=== PATIENT | female | born 1995 | race African-American/Black ===

== ENCOUNTER 2019-03-23 14:26 | Emergency (ER) | payer MEDICAID, OTHER ==
[~2019-03-23] VITALS: Ht 162.6 cm; Wt 58.1 kg
[2019-03-23] MEDS ORDERED: morphine INJ 10 MG/ML 1ML (SYR OR VIAL) IVP STA (15:25)
[2019-03-23] MEDS ORDERED: ONDANSETRON 4 MG/2 ML (SDV) Z0FRAN IVP ONE (15:30)
[2019-03-23] MEDS ORDERED: NS IV 1000 ML 1,000 ML IV SCH (15:30)
--- NOTE | 2019-03-23 15:33 | ED Abdominal Pain ---
General Chief Complaint: Abdominal/GI Problems Stated Complaint: ABD PAIN Nursing Triage Note: Patient reports RLQ/midline abdominal pain that started at 0700 this morning. She reports taking an antacid and ibprofen at home without relief. LMP March 02. BM x 2 days ago, patient reports this is normal for her. She denies any nausea or vomiting, states last food/drink intake at 10:00 am this morning. Sepsis Screen: No Definite Risk Source of Information: Patient Exam Limitations: No Limitations History of Present Illness Date Seen by Provider: Mar 23, 2019 Time Seen by Provider: 15:15 Initial Comments The patient is a very pleasant 23-year-old female who presents for abdominal pain which started early this morning around 7 AM. She reports that she tried taking an antacid and some ibuprofen at home but these did not help. She reports that her last menstrual period was 03/02/19. She says that her last bowel movement was 2 days ago and that she does sometimes have some constipation. Her last oral intake was at 10 AM today. She denies any past surgical abdominal history. She denies fevers or chills, nausea or vomiting, diarrhea, back or flank pain, pelvic pain/bleeding/discharge, urinary complaints, chest pain or shortness of breath, dizziness or syncope. Timing/Duration: Other (6-10 hrs) Severity/Quality: Severe Location: RUQ, RLQ Radiation: No Radiation Activities at Onset: None Modifying Factors: Improves With Movement (feels worse to straighten out), Improves With Other (feels better to lay on side in a ball) Allergies and Home Medications Allergies Coded Allergies: No Known Drug Allergies (Unverified , 03/23/19) Patient Home Medication List Home Medication List Reviewed: Yes Review of Systems Review of Systems Constitutional: no symptoms reported EENTM: No Symptoms Reported Respiratory: No Symptoms Reported Cardiovascular: No Symptoms Reported Gastrointestinal: Abdominal Pain Genitourinary: No Symptoms Reported Musculoskeletal: no symptoms reported Skin: no symptoms reported Psychiatric/Neurological: No Symptoms Reported Endocrine: No Symptoms Reported Hematologic/Lymphatic: No Symptoms Reported All Other Systems Reviewed Negative Unless Noted: Yes Past Xvxrsse-Clxwdx-Swktod Hx Past Med/Social Hx: Reviewed Nursing Past Med/Soc Hx Patient Social History Alcohol Use: Denies Use Recreational Drug Use: No Smoking Status: Never a Smoker 2nd Hand Smoke Exposure: No Recent Foreign Travel: No Contact w/Someone Who Travel: No Recent Infectious Disease Expo: No Recent Hopitalizations: No Physical Abuse: No Sexual Abuse: No Mistreated: No Fear: No Seasonal Allergies Seasonal Allergies: No Past Medical History Surgeries: No Respiratory: No Cardiac: No Neurological: No Last Menstrual Period: Apr 02, 2019 Genitourinary: No Gastrointestinal: No Musculoskeletal: No Endocrine: No HEENT: No Cancer: No Psychosocial: No Integumentary: No Blood Disorders: No Physical Exam Vital Signs Vital Signs - First Documented 03/23/19 14:50 Temp 98.5 Pulse 76 Resp 16 B/P (MAP) 105/64 (78) Pulse Ox 100 O2 Delivery Room Air Capillary Refill : Less Than 3 Seconds Height/Weight/BMI Height: 5'4.00" Weight: 128lbs. oz. 58.472363zm; BMI Method:Stated General Appearance: WD/WN, no apparent distress HEENT: PERRL/EOMI, normal ENT inspection Neck: non-tender, supple, normal inspection Respiratory: chest non-tender, lungs clear, normal breath sounds, no respiratory distress, no accessory muscle use Cardiovascular: regular rate, rhythm, no edema, no JVD Gastrointestinal: normal bowel sounds, soft, no pulsatile mass, tenderness (RUQ, RLQ, suprapubic/periumbilical - moderate ttp) Extremities: normal range of motion, non-tender, no pedal edema Back: normal inspection, no CVA tenderness, no vertebral tenderness Neurologic/Psychiatric: tomato grader II-XII nml as tested, no motor/sensory deficits, alert, normal mood/affect, oriented x 3 Skin: normal color, warm/dry Progress/Results/Core Measures Results/Orders Lab Results Laboratory Tests Test 03/23/19 14:50 03/23/19 15:35 Range/Units Urine Color YELLOW Urine Clarity CLEAR Urine pH 7.5 5-9 Urine Specific [place] 1.010 L 1.016-1.022 Urine Protein NEGATIVE NEGATIVE Urine Glucose (UA) NEGATIVE NEGATIVE Urine Ketones TRACE H NEGATIVE Urine Nitrite NEGATIVE NEGATIVE Urine Bilirubin NEGATIVE NEGATIVE Urine Urobilinogen 0.2 NORMAL MG/DL Urine Leukocyte Esterase TRACE H NEGATIVE Urine RBC (Auto) NEGATIVE NEGATIVE Urine RBC NONE /HPF Urine WBC 10-25 H /HPF Urine Squamous Epithelial Cells 5-10 /HPF Urine Crystals PRESENT H /LPF Urine Amorphous Sediment MOD MILLY PHOSPHATE H /LPF Urine Bacteria FEW H /HPF Urine Casts NONE /LPF Urine Mucus LARGE H /LPF Urine Culture Indicated YES Urine Test NEGATIVE NEGATIVE White Blood Count 8.7 4.3-11.0 10^3/uL Red Blood Count 4.86 4.35-5.85 10^6/uL Hemoglobin 13.7 11.5-16.0 G/DL Hematocrit 40 35-52 % Mean Corpuscular Volume 82 80-99 FL Mean Corpuscular Hemoglobin 28 25-34 PG Mean Corpuscular Hemoglobin Concent 34 32-36 G/DL Red Cell Distribution Width 12.5 10.0-14.5 % Platelet Count 181 130-400 10^3/uL Mean Platelet Volume 11.2 H 7.4-10.4 FL Neutrophils (%) (Auto) 84 H 42-75 % Lymphocytes (%) (Auto) 10 L 12-44 % Monocytes (%) (Auto) 5 0-12 % Eosinophils (%) (Auto) 1 0-10 % Basophils (%) (Auto) 0 0-10 % Neutrophils # (Auto) 7.2 1.8-7.8 X 10^3 Lymphocytes # (Auto) 0.9 L 1.0-4.0 X 10^3 Monocytes # (Auto) 0.5 0.0-1.0 X 10^3 Eosinophils # (Auto) 0.1 0.0-0.3 10^3/uL Basophils # (Auto) 0.0 0.0-0.1 10^3/uL Sodium Level 136 135-145 MMOL/L Potassium Level 3.8 3.6-5.0 MMOL/L Chloride Level 100 98-107 MMOL/L Carbon Dioxide Level 23 21-32 MMOL/L Anion Gap 13 5-14 MMOL/L Blood Urea Nitrogen 14 7-18 MG/DL Creatinine 0.63 0.60-1.30 MG/DL Estimat Glomerular Filtration Rate > 60 BUN/Creatinine Ratio 22 Glucose Level 94 70-105 MG/DL Calcium Level 9.6 8.5-10.1 MG/DL Corrected Calcium 9.4 8.5-10.1 MG/DL Total Bilirubin 0.7 0.1-1.0 MG/DL Aspartate Amino Transf (AST/SGOT) 21 5-34 U/L Alanine Aminotransferase (ALT/SGPT) 16 0-55 U/L Alkaline Phosphatase 58 40-136 U/L Total Protein 7.8 6.4-8.2 GM/DL Albumin 4.2 3.2-4.5 GM/DL Amylase Level 66 25-125 U/L Lipase 30 8-78 U/L My Orders Orders - KENROY DIXON DO Comprehensive Metabolic Panel (03/23/19 15:07) Lipase (03/23/19 15:07) Amylase (03/23/19 15:07) Ua Culture If Indicated (03/23/19 15:07) Ed Iv/Invasive Line Start (03/23/19 15:07) Cbc With Automated Diff (03/23/19 15:07) Hcg,Qualitative Urine (03/23/19 15:07) Ct Abdomen/Pelvis W (03/23/19 15:25) Morphine Injection (Morphine Injection (03/23/19 15:25) Ondansetron Injection (Zofran Injectio (03/23/19 15:30) Ns Iv 1000 Ml (Sodium Chloride 0.9%) (03/23/19 15:30) Nothing By Mouth (03/24/19 Breakfast) Iohexol Injection (Omnipaque 350 Mg/Ml 1 (03/23/19 15:45) Received Contrast (Hold Metformin- Contr (03/23/19 15:45) Ns (Ivpb) (Sodium Chloride 0.9% Ivpb Bag (03/23/19 15:45) Urine Culture (03/23/19 14:50) Medications Given in ED Current Medications Medications Dose Ordered Sig/Ruperto Route Start Time Stop Time Status Last Admin Dose Admin Iohexol 100 ml ONCE ONCE IV 03/23/19 15:45 03/23/19 15:48 DC 03/23/19 16:36 100 ML Ondansetron HCl 4 mg ONCE ONCE IVP 03/23/19 15:30 03/23/19 15:31 DC 03/23/19 15:49 4 MG Sodium Chloride 100 ml ONCE ONCE IV 03/23/19 15:45 03/23/19 15:48 DC 03/23/19 16:36 80 ML Vital Signs/I&O 03/23/19 14:50 Temp 98.5 Pulse 76 Resp 16 B/P (MAP) 105/64 (78) Pulse Ox 100 O2 Delivery Room Air Blood Pressure Mean: 78 Progress Progress Note : Progress Note @1720 - Patient updated on lab and imaging results. She states that she is feeling much better and would like to go home. The patient declines pelvic exam at this time. She will go home with antibiotics for the UTI and possible early pyelonephritis. Advised the patient to follow-up with her PCP in the next 1-2 days and to return immediately for new or worsening symptoms. She will home with a prescription for [place], Zofran, and cephalexin. Diagnostic Imaging Diagonstic Imaging: CT Comments [facility], [place] NAME: DI CRUZ [facility] REC#: [id number] PT STATUS: REG ER : 1995 PHYSICIAN: KENROY DIXON DO ADMIT DATE: 03/23/19/ER FS Draft Date of Exam:03/23/19 CT ABDOMEN/PELVIS W PROCEDURE: CT abdomen and pelvis with contrast. TECHNIQUE: Multiple contiguous axial images were obtained through the abdomen and pelvis after administration of intravenous contrast. Auto Exposure Controls were utilized during the CT exam to meet ALARA standards for radiation dose reduction. INDICATION: Epigastric pain x 1 day. COMPARISON: No prior CT study is available for comparison. FINDINGS: The lung bases are clear. The liver and gallbladder are unremarkable. No biliary ductal dilatation is seen. The pancreas and spleen are unremarkable. No adrenal mass is identified. The kidneys are without evidence of hydronephrosis. The aorta is non-aneurysmal. The bowel loops appear to be normal in caliber. There is no ascites. The appendix is not well-visualized; however, no inflammatory changes are seen. The bladder and uterus are unremarkable. IMPRESSION: Unremarkable CT of the abdomen and pelvis. No acute abnormality is detected. Dictated on workstation # [id number] Dict: 03/23/19 1638 Trans: 03/23/19 1644 [id number] Interpreted by: CHANDAN MIRAMONTES MD Electronically signed by: Departure Impression Primary Impression: Abdominal pain Additional Impression: UTI (urinary tract infection) Disposition: HOME, SELF-CARE Condition: Stable Departure-Patient Inst. Decision time for Depature: 17:20 Referrals: NO,LOCAL PHYSICIAN (PCP/Family) Primary Care Physician Patient Instructions: Acute Abdomen (Belly Pain), Adult (DC), Urinary Tract Infection, Adult (DC) Add. Discharge Instructions: Take the medications as prescribed. Follow-up with your doctor in the next 1-2 d ays. Return to the Emergency Department immediately for new or worsening symptoms. Scripts Tramadol HCl (Ultram) 50 Mg Tablet 50 MG PO Q6H PRN for PAIN-SEVERE for 5 Days, #15 TAB Prov: KENROY DIXON DO 03/23/19 Ondansetron (Ondansetron Odt) 4 Mg Tab.rapdis 4 MG PO Q6H PRN for NAUSEA/VOMITING-1ST LINE for 5 Days, #20 TAB Prov: KENROY DIXON DO 03/23/19 Cephalexin (Cephalexin) 500 Mg Tablet 500 MG PO BID for 10 Days, #20 TAB 0 Refills Prov: KENROY DIXON DO 03/23/19 KENROY DIXON DO Mar 23, 2019 15:32
[2019-03-23] MEDS ORDERED: IOHEXOL 350 MG/ML 100 ML (OMNIPAQUE 350) VIAL IV ONE (15:45)
[2019-03-23] MEDS ORDERED: NS 100 ML (IVPB) BAG IV ONE (15:45)
[2019-03-23] MEDS ORDERED: HOLD METFORMIN - RECEIVED CONTRAST 20 ML VIAL IV SCH (15:45)
[2019-03-23 15:55] LABS: BILIRUBIN,URINE NEGATIVE (NEGATIVE); CLARITY,URINE CLEAR; COLOR,URINE YELLOW; GLUCOSE, URINE (UA) NEGATIVE (NEGATIVE); KETONES,URINE TRACE (NEGATIVE); NITRITE,URINE NEGATIVE (NEGATIVE); PH,URINE 7.5 (5-9); PROTEIN,URINE NEGATIVE (NEGATIVE)
[2019-03-23 15:56] LABS: AMORPHOUS SEDIMENT,UR MOD AMOR PHOSPHATE /LPF; BACTERIA,URINE FEW /HPF; LEUKOCYTE ESTERASE ,URINE TRACE (NEGATIVE); UROBILINOGEN,URINE 0.2 MG/DL (NORMAL)
[2019-03-23 16:01] LABS: BASOPHILS % (AUTO) 0 % (0-10); EOSINOPHILS % (AUTO) 1 % (0-10); HEMATOCRIT 40 % (35-52); HEMOGLOBIN 13.7 G/DL (11.5-16.0); LYMPHOCYTES # (AUTO) 0.9 X 10^3 (1.0-4.0); LYMPHOCYTES % (AUTO) 10 % (12-44); MEAN CORPUSCULAR HEMOGLOBIN 28 PG (25-34); MEAN CORPUSCULAR HGB CONC 34 G/DL (32-36); MEAN CORPUSCULAR VOLUME 82 FL (80-99); MEAN PLATELET VOLUME 11.2 FL (7.4-10.4); MONOCYTES # (AUTO) 0.5 X 10^3 (0.0-1.0); MONOCYTES % (AUTO) 5 % (0-12); NEUTROPHILS # (AUTO) 7.2 X 10^3 (1.8-7.8); NEUTROPHILS % (AUTO) 84 % (42-75); PLATELET COUNT 181 10^3/uL (130-400); RED CELL DISTRIBUTION WIDTH 12.5 % (10.0-14.5); WHITE BLOOD COUNT 8.7 10^3/uL (4.3-11.0)
[2019-03-23 16:02] LABS: EOSINOPHILS # (AUTO) 0.1 10^3/uL (0.0-0.3)
[2019-03-23 16:30] LABS: POTASSIUM 3.8 MMOL/L (3.6-5.0); SODIUM 136 MMOL/L (135-145)
[2019-03-23 16:31] LABS: ALANINE AMINOTRANSFERASE 16 U/L (0-55); ALBUMIN 4.2 GM/DL (3.2-4.5); ALKALINE PHOSPHATASE 58 U/L (40-136); BILIRUBIN,TOTAL 0.7 MG/DL (0.1-1.0); BUN/CREATININE RATIO 22; CALCIUM 9.6 MG/DL (8.5-10.1); CARBON DIOXIDE 23 MMOL/L (21-32); CHLORIDE 100 MMOL/L (98-107); CREATININE SERUM 0.63 MG/DL (0.60-1.30); GFR ESTIMATED > 60; GLUCOSE 94 MG/DL (70-105); TOTAL PROTEIN 7.8 GM/DL (6.4-8.2)
[2019-03-23 16:32] LABS: AMYLASE 66 U/L (25-125); LIPASE 30 U/L (8-78)
--- NOTE | 2019-03-23 16:44 | Diagnostic Imaging Report ---
PROCEDURE: CT abdomen and pelvis with contrast. TECHNIQUE: Multiple contiguous axial images were obtained through the abdomen and pelvis after administration of intravenous contrast. Auto Exposure Controls were utilized during the CT exam to meet ALARA standards for radiation dose reduction. INDICATION: Epigastric pain x 1 day. COMPARISON: No prior CT study is available for comparison. FINDINGS: The lung bases are clear. The liver and gallbladder are unremarkable. No biliary ductal dilatation is seen. The pancreas and spleen are unremarkable. No adrenal mass is identified. The kidneys are without evidence of hydronephrosis. The aorta is non-aneurysmal. The bowel loops appear to be normal in caliber. There is no ascites. The appendix is not well-visualized; however, no inflammatory changes are seen. The bladder and uterus are unremarkable. IMPRESSION: Unremarkable CT of the abdomen and pelvis. No acute abnormality is detected. Dictated by: Dictated on workstation # [id number]
[2019-03-23] MEDS ORDERED: ONDA4TAB11 PO (17:26)
[2019-03-23] MEDS ORDERED: CEPH500T PO (17:26)
[2019-03-23] MEDS ORDERED: TRAM-42 PO (17:26)
[2019-03-23 17:34] VITALS: BP 105/64
== END 2019-03-23 17:34 | disposition home or self-care (01) ==
LOC: ER FS 14:28
DX: N39.0 Urinary tract infection, site not specified (principal)
CPT/HCPCS: 36415; 74177; 80053; 81000; 82150; 83690; 84703; 85025; 87088

== ENCOUNTER 2019-03-24 09:32 | Emergency (ER) | payer MEDICAID ==
[~2019-03-24] VITALS: Ht 162.6 cm; Wt 65.3 kg
[~2019-03-24 09:32] MED LIST: CEPH500T PO; ONDA4TAB11 PO; TRAM-42 PO
--- NOTE | 2019-03-24 10:03 | ED General ---
General Chief Complaint: Dizziness/Syncope Stated Complaint: ABD PAIN History of Present Illness Date Seen by Provider: Mar 24, 2019 Time Seen by Provider: 10:02 Initial Comments Patient presents emergency department for evaluation of a syncopal episode that occurred shortly prior to arrival. 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 She says that she took her 3 prescribed medicines shortly before walking outside to the parking lot. She briefly passed out. She says she feels weak all over but denies any specific pain fevers chills nausea vomiting. Reportedly her blood pressure was in the 60s systolic on scene and she was started on IV fluids. Patient was seen yesterday in this emergency department for abdominal pain and had extensive workup including CT imaging came back negative. She was started on Keflex tramadol and Zofran for her abdominal pain and presumed urinary tract infection. She says she has been taking her medications as prescribed. She appears nontoxic with normal vital signs other than the hypotension and the 80/60 range. I asked her if she knows what her baseline blood pressure is and she did not know. Yesterday her blood pressure was documented as 105/64. Allergies and Home Medications Allergies Coded Allergies: No Known Drug Allergies (Unverified , 03/23/19) Home Medications Cephalexin 500 Mg Tablet, 500 MG PO BID Prescribed by: KENROY DIXON on 03/23/191725 Ondansetron 4 Mg Tab.rapdis, 4 MG PO Q6H PRN for NAUSEA/VOMITING-1ST LINE Prescribed by: KENROY DIXON on 03/23/19 172 Tramadol HCl 50 Mg Tablet, 50 MG PO Q6H PRN for PAIN-SEVERE Prescribed by: KENROY DIXON on 03/23/19 172 Patient Home Medication List Home Medication List Reviewed: Yes Review of Systems Review of Systems Constitutional: no symptoms reported EENTM: no symptoms reported Respiratory: no symptoms reported Cardiovascular: no symptoms reported Gastrointestinal: no symptoms reported Genitourinary: no symptoms reported Psychiatric/Neurological: Other (syncope) All Other Systems Reviewed Negative Unless Noted: Yes Past Dbhlmoa-Vouljt-Cqqooq Hx Patient Social History 2nd Hand Smoke Exposure: No Recent Hopitalizations: No Seasonal Allergies Seasonal Allergies: No Past Medical History Surgeries: No Respiratory: No Cardiac: No Neurological: No Genitourinary: No Gastrointestinal: No Musculoskeletal: No Endocrine: No HEENT: No Cancer: No Psychosocial: No Integumentary: No Blood Disorders: No Physical Exam Vital Signs Vital Signs - First Documented 03/24/19 09:32 Temp 96.2 Pulse 88 Resp 16 B/P (MAP) 99/58 (72) Pulse Ox 100 O2 Delivery Room Air Capillary Refill : Height, Weight, BMI Height: 5'4.00" Weight: 128lbs. oz. 58.943797xt; BMI Method:Stated General Appearance: No Apparent Distress, WD/WN HEENT: PERRL/EOMI Neck: Supple Respiratory: No Respiratory Distress Cardiovascular: Regular Rate, Rhythm Gastrointestinal: Non Tender, Soft Extremity: Normal Capillary Refill, No Pedal Edema Neurologic/Psychiatric: Alert, Oriented x3, No Motor/Sensory Deficits Focused Exam Lactate Level 03/24/19 10:50: Lactic Acid Level 0.47L Lactic Acid Level Laboratory Tests Test 03/24/19 10:50 Lactic Acid Level 0.47 MMOL/L (0.50-2.00) L Progress/Results/Core Measures Suspected Sepsis SIRS Temperature: Pulse: Respiratory Rate: Laboratory Tests 03/24/19 10:50: White Blood Count 7.7 Blood Pressure / Mean: 03/24/19 10:50: Lactic Acid Level 0.47L Laboratory Tests 03/24/19 10:50: Creatinine 0.62, Platelet Count 151, Total Bilirubin 0.5 Results/Orders Lab Results Laboratory Tests Test 03/24/19 10:50 03/24/19 12:15 Range/Units White Blood Count 7.7 4.3-11.0 10^3/uL Red Blood Count 4.33 L 4.35-5.85 10^6/uL Hemoglobin 12.2 11.5-16.0 G/DL Hematocrit 36 35-52 % Mean Corpuscular Volume 83 80-99 FL Mean Corpuscular Hemoglobin 28 25-34 PG Mean Corpuscular Hemoglobin Concent 34 32-36 G/DL Red Cell Distribution Width 12.4 10.0-14.5 % Platelet Count 151 130-400 10^3/uL Mean Platelet Volume 11.3 H 7.4-10.4 FL Neutrophils (%) (Auto) 80 H 42-75 % Lymphocytes (%) (Auto) 11 L 12-44 % Monocytes (%) (Auto) 8 0-12 % Eosinophils (%) (Auto) 1 0-10 % Basophils (%) (Auto) 0 0-10 % Neutrophils # (Auto) 6.1 1.8-7.8 X 10^3 Lymphocytes # (Auto) 0.8 L 1.0-4.0 X 10^3 Monocytes # (Auto) 0.6 0.0-1.0 X 10^3 Eosinophils # (Auto) 0.1 0.0-0.3 10^3/uL Basophils # (Auto) 0.0 0.0-0.1 10^3/uL D-Dimer 0.79 H 0.00-0.49 UG/ML Sodium Level 135 135-145 MMOL/L Potassium Level 4.1 3.6-5.0 MMOL/L Chloride Level 102 98-107 MMOL/L Carbon Dioxide Level 20 L 21-32 MMOL/L Anion Gap 13 5-14 MMOL/L Blood Urea Nitrogen 13 7-18 MG/DL Creatinine 0.62 0.60-1.30 MG/DL Estimat Glomerular Filtration Rate > 60 BUN/Creatinine Ratio 21 Glucose Level 106 H 70-105 MG/DL Lactic Acid Level 0.47 L 0.50-2.00 MMOL/L Calcium Level 7.7 L 8.5-10.1 MG/DL Corrected Calcium 8.3 L 8.5-10.1 MG/DL Magnesium Level 1.5 L 1.6-2.4 MG/DL Total Bilirubin 0.5 0.1-1.0 MG/DL Aspartate Amino Transf (AST/SGOT) 17 5-34 U/L Alanine Aminotransferase (ALT/SGPT) 11 0-55 U/L Alkaline Phosphatase 45 40-136 U/L Troponin I < 0.30 <0.30 NG/ML Pro-B-Type Natriuretic Peptide 72.3 <75.0 PG/ML Total Protein 5.8 L 6.4-8.2 GM/DL Albumin 3.2 3.2-4.5 GM/DL Lipase 26 8-78 U/L Serum Alcohol < 10 <10 MG/DL Urine Color YELLOW Urine Clarity CLEAR Urine pH 5.5 5-9 Urine Specific [place] 1.025 H 1.016-1.022 Urine Protein NEGATIVE NEGATIVE Urine Glucose (UA) NEGATIVE NEGATIVE Urine Ketones TRACE H NEGATIVE Urine Nitrite NEGATIVE NEGATIVE Urine Bilirubin NEGATIVE NEGATIVE Urine Urobilinogen 0.2 NORMAL MG/DL Urine Leukocyte Esterase TRACE H NEGATIVE Urine RBC (Auto) NEGATIVE NEGATIVE Urine RBC NONE /HPF Urine WBC 5-10 H /HPF Urine Squamous Epithelial Cells 10-25 H /HPF Urine Crystals NONE /LPF Urine Bacteria TRACE /HPF Urine Casts NONE /LPF Urine Mucus MODERATE H /LPF Urine Culture Indicated YES Urine Opiates Screen POSITIVE H NEGATIVE Urine Oxycodone Screen NEGATIVE NEGATIVE Urine Methadone Screen NEGATIVE NEGATIVE Urine Propoxyphene Screen NEGATIVE NEGATIVE Urine Barbiturates Screen NEGATIVE NEGATIVE Ur Tricyclic Antidepressants Screen NEGATIVE NEGATIVE Urine Phencyclidine Screen NEGATIVE NEGATIVE Urine Amphetamines Screen NEGATIVE NEGATIVE Urine Methamphetamines Screen NEGATIVE NEGATIVE Urine Benzodiazepines Screen NEGATIVE NEGATIVE Urine Cocaine Screen NEGATIVE NEGATIVE Urine Cannabinoids Screen NEGATIVE NEGATIVE My Orders Orders - MELISA PAZ DO Alcohol (03/24/19 10:10) Cbc With Automated Diff (03/24/19 10:10) Comprehensive Metabolic Panel (03/24/19 10:10) Drug Screen Stat (Urine) (03/24/19 10:10) Fibrin Degradation Products (03/24/19 10:10) Lactic Acid Analyzer (03/24/19 10:10) Lipase (03/24/19 10:10) Magnesium (03/24/19 10:10) Probnp Fs (03/24/19 10:10) Troponin I (03/24/19 10:10) Ua Culture If Indicated (03/24/19 10:10) Ekg Tracing (03/24/19 10:10) Ns Iv 1000 Ml (Sodium Chloride 0.9%) (03/24/19 10:15) Magnesium 1 Gm/100 Ml Ivpb (Magnesium Armijo (03/24/19 11:45) Calcium Gluconate 10% Inj (Calcium Glu (03/24/19 11:45) Urine Culture (03/24/19 12:15) Medications Given in ED Current Medications Medications Dose Ordered Sig/Ruperto Route Start Time Stop Time Status Last Admin Dose Admin Calcium Gluconate 4.65 meq ONCE ONCE IV 03/24/19 11:45 03/24/19 11:46 DC 03/24/19 11:53 4.65 MEQ Magnesium Sulfate/ Dextrose 100 ml @ 100 mls/hr ONCE ONCE IV 03/24/19 11:45 03/24/19 12:44 DC 03/24/19 12:20 100 MLS/HR Vital Signs/I&O 03/24/19 09:32 Temp 96.2 Pulse 88 Resp 16 B/P (MAP) 99/58 (72) Pulse Ox 100 O2 Delivery Room Air Capillary Refill : Progress Note : Progress Note Patient with undifferentiated syncopal episode it sounds as if it were been more of a vasovagal episode as well check labs treating with IV fluids and reassess. Her workup is quite unremarkable for acute process. Her d-dimer is slightly elevated and I discussed doing a CT angiogram with the patient to rule out pulmonary embolism but she refused given she has been stuck something times and she does not have an IV proximal enough to do a CT angiogram. Patient verbaliz es understanding that a life-threatening diagnosis could be missed. I told her it is rather unlikely given she has a normal heart rate and oxygen saturation. Her blood pressure did improve after IV fluids here as it is up to 102/73. She is able to ambulate back and forth to the bathroom with no dizziness. She admits that she has not been eating or drinking well since yesterday. I'm not totally convinced that she has a urinary tract infection or needs all of the prescribed medications some going to recheck a urinalysis. Patient's urinalysis unremarkable on my opinion as it appears more contaminated than infected. I do not think that she would benefit from being on antibiotics or taking tramadol. I told her to rest her GI tract with a clear liquid diet ensure that she is drinking plenty of fluids. I told her Zofran would probably be okay if she is having nausea. Given patient appears well with normal vital signs benign physical exam and workup and she is up walking around tolerate fluids by mouth with no difficulty I will discharge her in stable condition. I told her to try and follow with a primary care provider within 2-3 days for recheck and come back to the ED sooner with worsening pain neurologic changes or other general concerns. Patient aware and agreeable with plan for discharge and verbalized understanding of the above instructions. Departure Impression Primary Impression: Syncope Additional Impressions: Hypomagnesemia Hypotension Disposition: 01 HOME, SELF-CARE Condition: Stable Departure-Patient Inst. Referrals: NO,LOCAL PHYSICIAN (PCP/Family) Primary Care Physician Patient Instructions: Syncope (Fainting) (DC) Work/School Note: School/Childcare Release Date Seen in the Emergency Department: Mar 24, 2019 Time Dismissed from Emergency Department: 13:24 Return to School: Mar 26, 2019 Restrictions: No Restrictions MELISA PAZ DO Mar 24, 2019 10:02
[2019-03-24] MEDS ORDERED: NS IV 1000 ML 1,000 ML IV SCH (10:15)
[2019-03-24 11:05] LABS: BASOPHILS % (AUTO) 0 % (0-10); EOSINOPHILS # (AUTO) 0.1 10^3/uL (0.0-0.3); EOSINOPHILS % (AUTO) 1 % (0-10); HEMATOCRIT 36 % (35-52); HEMOGLOBIN 12.2 G/DL (11.5-16.0); LYMPHOCYTES # (AUTO) 0.8 X 10^3 (1.0-4.0); LYMPHOCYTES % (AUTO) 11 % (12-44); MEAN CORPUSCULAR HEMOGLOBIN 28 PG (25-34); MEAN CORPUSCULAR HGB CONC 34 G/DL (32-36); MEAN CORPUSCULAR VOLUME 83 FL (80-99); MEAN PLATELET VOLUME 11.3 FL (7.4-10.4); MONOCYTES # (AUTO) 0.6 X 10^3 (0.0-1.0); MONOCYTES % (AUTO) 8 % (0-12); NEUTROPHILS # (AUTO) 6.1 X 10^3 (1.8-7.8); NEUTROPHILS % (AUTO) 80 % (42-75); PLATELET COUNT 151 10^3/uL (130-400); RED CELL DISTRIBUTION WIDTH 12.4 % (10.0-14.5); WHITE BLOOD COUNT 7.7 10^3/uL (4.3-11.0)
[2019-03-24 11:39] LABS: SODIUM 135 MMOL/L (135-145)
[2019-03-24 11:40] LABS: ALANINE AMINOTRANSFERASE 11 U/L (0-55); ALKALINE PHOSPHATASE 45 U/L (40-136); BILIRUBIN,TOTAL 0.5 MG/DL (0.1-1.0); BUN/CREATININE RATIO 21; CALCIUM 7.7 MG/DL (8.5-10.1); CARBON DIOXIDE 20 MMOL/L (21-32); CHLORIDE 102 MMOL/L (98-107); CREATININE SERUM 0.62 MG/DL (0.60-1.30); GFR ESTIMATED > 60; GLUCOSE 106 MG/DL (70-105); MAGNESIUM 1.5 MG/DL (1.6-2.4); POTASSIUM 4.1 MMOL/L (3.6-5.0); TOTAL PROTEIN 5.8 GM/DL (6.4-8.2)
[2019-03-24 11:41] LABS: ALBUMIN 3.2 GM/DL (3.2-4.5); LIPASE 26 U/L (8-78)
[2019-03-24] MEDS ORDERED: CALCIUM GLUC. 10% 4.65 MEQ/10 ML VIAL IV ONE (11:45)
[2019-03-24] MEDS ORDERED: MAGNESIUM 1 GM/100 ML IVPB 100 ML IV ONE (11:45)
[2019-03-24 12:47] LABS: CLARITY,URINE CLEAR; COLOR,URINE YELLOW; GLUCOSE, URINE (UA) NEGATIVE (NEGATIVE); KETONES,URINE TRACE (NEGATIVE); NITRITE,URINE NEGATIVE (NEGATIVE); PH,URINE 5.5 (5-9); PROTEIN,URINE NEGATIVE (NEGATIVE)
[2019-03-24 12:48] LABS: BACTERIA,URINE TRACE /HPF; BILIRUBIN,URINE NEGATIVE (NEGATIVE); LEUKOCYTE ESTERASE ,URINE TRACE (NEGATIVE); UROBILINOGEN,URINE 0.2 MG/DL (NORMAL)
[2019-03-24 12:49] LABS: AMPHETAMINE SCREEN, URINE NEGATIVE (NEGATIVE); BARBITURATE SCREEN URINE NEGATIVE (NEGATIVE); BENZODIAZEPINES SCREEN URINE NEGATIVE (NEGATIVE); CANNABINOID SCREEN, URINE NEGATIVE (NEGATIVE); COCAINE SCREEN URINE NEGATIVE (NEGATIVE); METHADONE STAT NEGATIVE (NEGATIVE); METHAMPHETAMINE SCREEN URINE S NEGATIVE (NEGATIVE); OPIATE SCREEN URINE POSITIVE (NEGATIVE); OXYCODONE STAT NEGATIVE (NEGATIVE); PROPOXYPHENE STAT NEGATIVE (NEGATIVE); TRICYCLIC ANTIDEPRESSANTS SCRE NEGATIVE (NEGATIVE)
[2019-03-24 13:45] VITALS: BP 99/55
--- NOTE | 2019-03-24 13:45 | NUR ---
Patient discharged in care of brother accompanying pt. Both verbalize understanding of home instructions reviewed with them. Pt to stop Tramadol and Cephalexin but may use Generic Zofran as needed for any N/V. Pt is to continue to try to remain hydrated and encourage slowly getting back into her diet as tolerated. Pt is given a school note to rest today and tomorrow and return 03/26/19 to school. 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 hair assistant and President of [employer] were aware pt was present here and President visited her.
== END 2019-03-24 13:45 | disposition home or self-care (01) ==
LOC: EDUNIT# 09:37 → ER FS 09:38
DX: R55 Syncope and collapse (principal); E83.42 Hypomagnesemia; I95.9 Hypotension, unspecified
CPT/HCPCS: 36415; 80053; 80306; 80320; 81000; 83605; 83690; 83735; 83880; 84484; 85025; 85379; 87088; 93005